=== PATIENT | female | born 1990 | race Hispanic/Latino ===

== ENCOUNTER 2019-12-07 12:54 | Emergency (ER) | payer MEDICAID, SELFPAY ==
[2019-12-07] MEDS ORDERED: Morphine 4 MG/ML VIAL ONE (14:02)
[2019-12-07] MEDS ORDERED: Ketorolac Tromethamine 30 MG/ML VIAL ONE (14:02)
== END 2019-12-07 14:21 | disposition home or self-care (01) ==
LOC: ERS 12:54
DX: G89.18 Other acute postprocedural pain (principal); K08.89 Other specified disorders of teeth and supporting structures; F41.9 Anxiety disorder, unspecified; Z98.890 Other specified postprocedural states
CPT/HCPCS: 96372; 99282; J1885; J2270